=== PATIENT | female | born 1955 | race Two or more races ===

== ENCOUNTER 2025-04-04 03:09 | Emergency (ER) | payer OTHER, MEDICAID ==
[~2025-04-04] VITALS: Ht 160 cm; Wt 61.3 kg
--- NOTE | 2025-04-04 03:35 | ED.PDOC ---
History of Present Illness HPI Comments 69-year-old female who came to ER via EMS for shortness of breath. Patient has history of hypertension, diabetes, anxiety, depression, COVID-19, breast cancer status post mastectomy. Patient is a few hours ago started having shortness a breath with generalized weakness, lightheadedness and dizziness. Patient went to [facility], was noted to be hypotensive at 70/40 mm Hg. Patient underwent several diagnostic tests, medical management, and was eventually diagnosed with sepsis, lactic acidosis, pneumonia. And was advised the transfer to this institution for further management. 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 Family History Family History: Reviewed,noncontributory to illness Social History Smoker: Non-Smoker Alcohol: Denies ETOH Use Drugs: Denies Drug Use Lives In: Home Constitutional: reports: fatigue, weakness; denies: chills, diaphoresis, fever, malaise, sweats, others EENTM: denies: blurred vision, double vision, ear bleeding, ear discharge, ear drainage, ear pain, ear ringing, eye pain, eye redness, hearing loss, mouth pain, mouth swelling, nasal discharge, nose bleeding, nose congestion, nose pain, photophobia, tearing, throat pain, throat swelling, voice changes, others Respiratory: reports: SOB at rest, shortness of breath, SOB with excertion; denies: cough, hemoptysis, orthopnea, stridor, wheezing, others Cardiovascular: denies: chest pain, dizzy spells, diaphoresis, Dyspnea on exertion, edema, irregular heart beat, left arm pain, lightheadedness, palpitations, PND, syncope, others Gastrointestinal: denies: abdomen distended, abdominal pain, blood streaked bowels, constipated, diarrhea, dysphagia, difficulty swallowing, hematemesis, melena, nausea, poor appetite, poor fluid intake, rectal bleeding, rectal pain, vomiting, others Genitourinary: denies: abnormal vagina bleeding, burning, dyspareunia, dysuria, flank pain, frequency, hematuria, incontinence, pain, , vagina discharge, urgency, others Neurological: denies: dizziness, fainting, headache, left sided numbness, left sided weakness, numbness, paresthesia, pre-existing deficit, right sided numbness, right sided weakness, seizure, speech problems, tingling, tremors, weakness, others Musculoskeletal: denies: back pain, gout, joint pain, joint swelling, muscle pain, muscle stiffness, neck pain, others Integumetry: denies: bruises, change in color, change in hair/nails, dryness, laceration, lesions, lumps, rash, wounds, others Allergic/Immunocompromised: denies: Difficulty Healing, Frequent Infections, Hives, Itching, others Hematologic/Lymphatic: denies: anemia, blood clots, easy bleeding, easy bruising, swollen glands, others Endocrine: denies: excessive hunger, excessive sweating, excessive thirst, excessive urination, flushing, intolerance to cold, intolerance to heat, unexplained weight gain, unexplained weight loss, others Psychiatric: denies: anxiety, bipolar disorder, depression, hopeless, panic disorder, schizophrenia, sleepless, suicidal, others Physical Exam General Appearance: No Apparent Distress, Normal HEENT: Normal ENT Inspection, Pharynx Normal, TMs Normal Neck: Full Range of Motion, Non-Tender, Normal, Normal Inspection Respiratory: Chest Non-Tender, Lungs Clear, No Accessory Muscle Use, No Respiratory Distress, Normal Breath Sounds Cardiovascular: No Edema, No JVD, No Murmur, No Gallop, Normal Peripheral Pul ses, Regular Rate/Rhythm Breast Exam: Deferred Gastrointestinal: No Organomegaly, Non Tender, No Pulsatile Mass, Normal Bowel Sounds, Soft Genitalia: Deferred Pelvic: Deferred Rectal: Deferred Extremities: No calf tenderness, Normal capillary refill, Normal inspection, Normal range of motion, Non-tender, No pedal edema Musculoskeletal : Apperance: Normal Neurologic: Alert, director of housing II-XII nml as Tested, No Motor Deficits, Normal Affect, Normal Mood, No Sensory Deficits Cerebellar Function: Normal Reflexes: Normal Skin: Dry, Normal Color, Warm Lymphatic: No Adenopathy Was a procedure done? Was a procedure done?: No Differential Dx Considerations may include: Sepsis, lactic acidosis, pneumonia, UTI, hypotension X-Ray, Labs, Meds, VS Vital Signs Date Time Temp Pulse Resp B/P (MAP) Pulse Ox O2 Delivery O2 Flow Rate FiO2 04/04/25 03:37 97.6 94 18 106/58 (74) 97 97.6 04/04/25 03:09 97.4 93 20 115/76 (89) 95 97.4 Lab Test 04/04/25 03:30 Range/Units White Blood Count 13.0 H 4.4-10.8 10^3/uL Red Blood Count 4.21 4.0-5.20 10^6/uL Hemoglobin 12.0 L 12.2-16.2 g/dL Hematocrit 37.3 36.0-46.0 % Mean Corpuscular Volume 88.4 80.0-100.0 fL Mean Corpuscular Hemoglobin 28.4 28.0-32.0 pg Mean Corpuscular Hemoglobin Concent 32.1 32.0-36.0 g/dL Red Cell Distribution Width 19.3 H 11.8-14.3 % Platelet Count 331 140-450 10^3/uL Mean Platelet Volume 7.9 6.9-10.8 fL Neutrophils (%) (Auto) 82.5 H 37.0-80.0 % Lymphocytes (%) (Auto) 12.0 10.0-50.0 % Monocytes (%) (Auto) 4.1 0.0-12.0 % Eosinophils (%) (Auto) 1.1 0.0-7.0 % Basophils (%) (Auto) 0.3 0.0-2.0 % Neutrophils # (Auto) 10.7 H 1.6-8.6 10 ^3/uL Lymphocytes # (Auto) 1.6 0.4-5.4 10 ^3/uL Monocytes # (Auto) 0.5 0-1.3 10 ^3/uL Eosinophils # (Auto) 0.1 0-0.8 10 ^3/uL Basophils # (Auto) 0 0-0.2 10 ^3/uL Nucleated Red Blood Cells 0.0 % Sodium Level 136 136-145 mmol/L Potassium Level 4.3 3.5-5.1 mmol/L Chloride Level 107 98-107 mmol/L Carbon Dioxide Level 20 20-31 mmol/L Anion Gap 9 5-15 Blood Urea Nitrogen 19 9-23 mg/dL Creatinine 0.92 0.550-1.02 mg/dL Glomerular Filtration Rate Calc 68 >90 mL/min BUN/Creatinine Ratio 20.7 H 10.0-20.0 Serum Glucose 178 H 74-106 mg/dL Lactic Acid Level 2.2 *H 0.4-2.0 mmol/L Calcium Level 8.9 8.7-10.4 mg/dL Total Bilirubin 0.2 0.2-1.0 mg/dL Aspartate Amino Transferase (AST) 9 L 13-40 U/L Alanine Aminotransferase (ALT) 10 7-40 U/L Alkaline Phosphatase 89 46-116 U/L Total Protein 6.4 5.7-8.2 g/dL Albumin 3.9 3.2-4.8 g/dL Current Medications Medications (Trade) Dose Ordered Sig/Yessica Route Start Time Stop Time Status Last Admin Sodium Chloride 1,000 ml @ 1,000 mls/hr Q1H ONCE IVB 04/04/25 03:30 04/04/25 04:29 DC 04/04/25 03:46 Ceftriaxone Sodium 50 ml @ 100 mls/hr ONCE ONCE IV 04/04/25 03:30 04/04/25 03:59 DC 04/04/25 03:46 Azithromycin 250 ml @ 125 mls/hr ONCE ONCE IV 04/04/25 03:30 04/04/25 05:29 04/04/25 04:16 Ondansetron HCl (Zofran) 4 mg ONCE ONCE IV 04/04/25 04:00 04/04/25 04:01 DC 04/04/25 04:35 Time of 1ST Reevaluation: 03:28 Reevaluation 1ST: Unchanged Patient Education/Counseling: Diagnosis, Treatment Family Education/Counseling: No Family Present Sepsis Sepsis Reasesment Focused Exam Sepsis focused exam: focus exam completed (In the initial resuscitation at least 30 mL/kg of IV crystalloid fluid was NOT given within the first 3 hr due to concerns of fluid overload), time: (0) Departure 1 Departure Time of Disposition: 04:47 Impression: Primary Impression: Pneumonia Disposition: 09 ADMITTED INPATIENT Admit to: Tele Condition: Guarded Discharged With: Self Comments Shortness of Breath and Weakness - Pneumonia Chief Complaint: Shortness of breath and generalized weakness History of Present Illness: 69-year-old female presents with a 2-day history of generalized weakness and shortness of breath. Patient was initially evaluated at [facility] where she was found to have an elevated lactate of 10 and was diagnosed with pn eumonia. She received initial treatment with IV fluids and antibiotics at the transferring facility. Patient was subsequently transferred to our facility for higher level of care. Review of Systems: Limited by available information Respiratory: Positive for shortness of breath Constitutional: Positive for generalized weakness Otherwise unable to obtain due to limited information in engineering manager electronics Medications: No current medications documented in transfer Allergies: No known allergies documented in transfer Past Medical History: 1. Hypertension 2. Diabetes mellitus 3. Breast cancer 4. Pneumonia (active) Past Surgical History: 1. Mastectomy for breast cancer Social History: History of cigarette smoking Additional social history not documented in transfer Physical Exam: Physical examination findings not documented in transfer Lab Results: Initial labs at transferring facility: - Lactate: 10 (initial) ? 2.2 (repeat) - WBC: 13, 000/L (elevated) - Hemoglobin: 12 g/dL - Hematocrit: 37% - Platelets: 331, 000/L (normal) - Chemistry panel: unremarkable Imaging and Other Relevant Results: Chest X-ray: Right-sided interstitial infiltrate consistent with pneumonia Medical Decision Making: Summary Statement: 69-year-old female with multiple comorbidities presenting with pneumonia, initially with severe lactic acidosis that has improved with initial treatment. Problem List: 1. Community-acquired pneumonia 2. Lactic acidosis, improving 3. Leukocytosis Differential Diagnosis: 1. Bacterial pneumonia 2. Sepsis 3. Healthcare- associated pneumonia 4. Viral pneumonia 5. Acute exacerbation of underlying condition ED Course: Patient received IV fluids, IV Rocephin (ceftriaxone), and IV azithromycin. Lactic acidosis improved from 10 to 2.2. Decision made to admit for further management and supportive care. Assessment and Plan: 1. Pneumonia with improving lactic acidosis - Continue IV antibiotics (Rocephin and azithromycin) - Continue IV fluid resuscitation as needed - Monitor respiratory status - Admission to medical floor for continued care 2. Elevated WBC (13, 000) - Likely due to underlying infection - Will monitor trending with continued treatment 3. Chronic medical conditions (HTN, DM, h/o breast cancer) - Continue home medications as appropriate - Monitor blood glucose during admission Billing Information: ICD-10: J18.9 - Pneumonia, unspecified organism ICD-10: E87.2 - Lactic acidosis ICD-10: R53.1 - Weakness ICD-10: R06.02 - Shortness of breath Critical Care Note Critical Care Time?: Yes (35 min-critical care time only) Critical care comment: Sepsis Total critical care time: Approximately 36 minutes Due to a high probability of clinically significant, life threatening deterioration, the patient required my highest level of preparedness to intervene emergently and I personally spent this critical care time directly and personally managing the patient. This critical care time included obtaining a history; examining the patient; pulse oximetry; ordering and review of studies; arranging urgent treatment with development of a management plan; evaluation of patient's response to treatment; frequent reassessment; and, discussions with other providers. This critical care time was performed to assess and manage the high probability of imminent, life-threatening deterioration that could result in multi-organ failure. It was exclusive of separately billable procedures and treating other patients. Stability Stability form required: No Heart Score Heart Score: Heart Score Response (Comments) Value History Moderate Suspicious 1 EKG Repolarization Disturb 1 Age >65 2 Risk Factors >3 or Hx ASHD 2 Troponin Normal limit 0 Total 6 I personally scribed for MINNIE RUIZ MD ([email or web address]) on 04/04/25 at 03:35. Electronically submitted by Jose De Santiago ([facility]). MINNIE RUIZ MD April 04, 2025 03:35
[2025-04-04] MEDS: cefTRIAXone 1GM/50ML D5W 50 ML IV ONE ×2 (03:46→13:05)
[2025-04-04] MEDS: SODIUM CHLORIDE 0.9% 1,000 ML IVB ONE (03:46)
[2025-04-04 04:07] LABS: Basophils # (auto) 0 10 ^3/uL (0-0.2); Basophils % (auto) 0.3 % (0.0-2.0); Eosinophils # (auto) 0.1 10 ^3/uL (0-0.8); Eosinophils % (auto) 1.1 % (0.0-7.0); Hematocrit 37.3 % (36.0-46.0); Lymphocytes # (auto) 1.6 10 ^3/uL (0.4-5.4); Mean Corpuscular Hemoglobin 28.4 pg (28.0-32.0); Mean Corpuscular Hgb Conc. 32.1 g/dL (32.0-36.0); Mean Corpuscular Volume 88.4 fL (80.0-100.0); Monocytes # (auto) 0.5 10 ^3/uL (0-1.3); Monocytes % (auto) 4.1 % (0.0-12.0); Neutrophils # (auto) 10.7 10 ^3/uL (1.6-8.6); Neutrophils % (auto) 82.5 % (37.0-80.0); Platelet Count (auto) 331 10^3/uL (140-450); Red Blood Cells 4.21 10^6/uL (4.0-5.20); Red Cell Distribution Width 19.3 % (11.8-14.3)
[2025-04-04] MEDS: AZITHROMYCIN 500MG/ 250ML 250 ML IV ONE ×2 (04:16→13:05)
[2025-04-04 04:23] LABS: Alanine Aminotransferase 10 U/L (7-40); Albumin 3.9 g/dL (3.2-4.8); Alkaline Phosphatase 89 U/L (46-116); Anion Gap 9 (5-15); BUN/Creatinine Ratio 20.7 (10.0-20.0); Blood Urea Nitrogen 19 mg/dL (9-23); Calcium 8.9 mg/dL (8.7-10.4); Carbon Dioxide 20 mmol/L (20-31); Potassium 4.3 mmol/L (3.5-5.1); Sodium 136 mmol/L (136-145); Total Protein 6.4 g/dL (5.7-8.2)
[2025-04-04 04:27] LABS: Aspartate Aminotransferase 9 U/L (13-40); Bilirubin, Total 0.2 mg/dL (0.2-1.0); Chloride 107 mmol/L (98-107); Glucose 178 mg/dL (74-106)
[2025-04-04 04:29] LABS: Lactic Acid w/Reflex 2.2 mmol/L (0.4-2.0)
[2025-04-04] MEDS: ONDANSETRON HCL 4 MG/2 ML VIAL IV ONE (04:35)
--- NOTE | 2025-04-04 05:14 | DVH ---
CHEST RADIOGRAPH Indication: pneumonia / SOB Technique: Single frontal view of the chest was obtained Comparison: None IMPRESSION: Heart appears prominent size. There are patchy airspace opacities in the right lung most pronounced in the right upper lobe favoring pneumonia. Left costophrenic angle is excluded. No discrete sizable effusion or pneumothorax. Follow-up to resolution is recommended.
[2025-04-04 05:25] LABS: Urine Bacteria None Seen /hpf (None Seen)
[2025-04-04 05:35] LABS: Urine Blood Negative /uL (Negative); Urine Clarity Clear (Clear); Urine Color Light-Yellow (Yellow); Urine Protein, UAD Negative (Negative); Urine Specific Gravity 1.016 (1.001-1.035); Urine Squamous Epithelial Cell FEW /hpf (<5); Urine Urobilinogen Normal (Negative); Urine WBC 1 /HPF (0-5); Urine pH 5.5 (5.0-9.0)
[2025-04-04 07:52] VITALS: TEMP 98.7
[2025-04-04] MEDS: SODIUM CHLORIDE 0.9% 500 ML IV ONE (08:08)
[2025-04-04] MEDS: IOHEXOL 300 MG/ML 100ML BOTTLE IJ ONE (09:06)
[2025-04-04 09:19] VITALS: PULSE 91; RESP 24; O2SAT 100
--- NOTE | 2025-04-04 09:30 | DVH ---
EXAM: CT Chest With Intravenous Contrast CLINICAL INDICATION: abnormal CXR TECHNIQUE: Axial computed tomography images of the chest with intravenous contrast. This CT exam wa s performed using one or more of the following dose reduction techniques: automated exposure control , adjustment of the mA and/or kV according to patient size, and/or use of iterative reconstruction te chnique. CONTRAST: RADIATION DOSE: CTDIvol = 19.3 mGy, DLP = 713.22 mGy-cm COMPARISON: None FINDINGS: LUNGS AND PLEURAL SPACES: Lung emphysema/ COPD with patchy airspace disease of the right lung, like ly multifocal pneumonia. No significant effusion. HEART: Cardiomegaly with small pericardial effusion. No significant coronary artery calcifications . MEDIASTINUM: Scattered mediastinal lymph nodes some of which are upper limits of normal in size and are most likely reactive lymph nodes. Small esophageal hiatal hernia. BONES/JOINTS: Mild superior endplate compression deformity of the lower thoracic vertebraes, likely chronic. No dislocation. SOFT TISSUES: Unremarkable. VASCULATURE: Unremarkable. No thoracic aortic aneurysm. LYMPH NODES: See above. LIVER: Fatty liver. OTHER FINDINGS: . . IMPRESSION: 1. Cardiomegaly with small pericardial effusion. 2. Lung emphysema/ COPD with patchy airspace disease of the right lung, likely multifocal pneumonia. 3. Scattered mediastinal lymph nodes some of which are upper limits of normal in size and are most l ikely reactive lymph nodes. 4. Small esophageal hiatal hernia.
[2025-04-04] MEDS: IPRATROPIUM BROM 0.5 MG/2.5ML INH SOL NEB ONE (10:45)
[2025-04-04] MEDS: ALBUTEROL SULF 2.5 MG/0.5ML(0.5%) NEB SOLN NEB ONE (10:45)
[2025-04-04] MEDS ORDERED: LEVO500T91 PO (10:52)
[2025-04-04 11:02] VITALS: RESP 16
[2025-04-04] MEDS: ALBUTEROL SULF 2.5 MG/0.5ML(0.5%) NEB SOLN ONE (11:03)
[2025-04-04] MEDS: IPRATROPIUM BROM 0.5 MG/2.5ML INH SOL ONE (11:03)
[2025-04-04 12:50] VITALS: BP 104/51; PULSE 85; O2SAT 97
[2025-04-04] MEDS: DexAMETHasone SOD PHOS 10MG/1ML VIAL INJ IV ONE (13:05)
--- NOTE | 2025-04-05 13:38 | DVHDS2 ---
Physician Discharge Progress N Final Diagnosis: Pneumonia Operations or Procedures: Operations or Procedures none Other Interventions Other Interventions lab results, EKG, CXR, CT Consultations: Consultations none Commentary: Commentary 69 y.o. female with COPD, HTN, DM, breast cancer s/p left mastectomy was brought to ER from [facility] for further evaluation and treatment of shortness of breath. Patient initially arrive to [facility] c/o generalized weakness, lightheadedness and SOB and was noted to be hypotensive there with BP 70/40. Patient was diagnosed with pneumonia and transferred to [facility] ER. In the ER she received IV NS, IV Rocephin, Decadron, Duoneb. Patient's BP improved and stabilized. She was breathing 95-97% on RA. Patient was able to ambulate independently. Patient was discharge home in stable condition with recommendation to continue Abx for a week and f/u with PMD in 3 days. Patient verbalized understanding and agreement Condition on Discharge: Stable Disposition: Home SNF Discharge Will this Physician continue t: No Discharge Instructions: Diet: Consistent carbohydrate Activity: No Restrictions, As Tolerated Follow Up/Referral: PMD in 3 days, Abimael will schedule the appointment Medications: Levaquin 500 mg PO daily for 7 days Follow Up Care: Discharge Statement: "Patient was advised to return to the ER or call 911 if any headaches, dizziness, shortness of breath, chest pain, abdominal pain, bleeding, fevers, or worsening of medical condition. Patient was counseled about treatment plan, medications, possible side effects, patientverbalized understanding. All questions were answered to the best of my ability. This discharge took greater then 30 minutes in planning, reviewing documentation, counseling the patient, and discussing with other team members." CHLEO FUNES MD April 05, 2025 13:38
== END 2025-04-04 13:09 | disposition home or self-care (01) ==
LOC: EDBD 03:09 → ER 03:09
DX: J18.9 Pneumonia, unspecified organism (principal); F41.9 Anxiety disorder, unspecified; E11.9 Type 2 diabetes mellitus without complications; I10 Essential (primary) hypertension; Z90.710 Acquired absence of both cervix and uterus
CPT/HCPCS: 36415; 71045; 71260; 80053; 81001; 83605; 84484; 85025; 87040; 94640; 96365; 96366; 96367; 96375; 99291; J0456; J0696; J2405; Q9967